=== PATIENT | male | born 1960 | race Caucasian/White ===

== ENCOUNTER 2023-05-28 08:04 | Emergency (ER) | payer MEDICAID ==
[~2023-05-28] VITALS: Ht 177.8 cm; Wt 81.6 kg
[2023-05-28] MEDS ORDERED: normal saline 1000ML IV soln IVB ONE ×2 (09:00)
[2023-05-28] MEDS ORDERED: methylPREDNISolone sod succ 125mg/2ml vial IV ONE (09:00)
[2023-05-28] MEDS ORDERED: furosemide 40mg/4ml inj IV ONE (09:00)
[2023-05-28] MEDS ORDERED: albuterol 2.5 MG/3 ML nebule CONTNEB PRN (09:00)
[2023-05-28] MEDS ORDERED: ipratropium 0.5 MG/2.5ML nebule IH ONE (09:00)
[2023-05-28 09:16] VITALS: PULSE 84; RESP 20; O2SAT 97
[2023-05-28 09:49] VITALS: BP 123/84; O2SAT 100
[2023-05-28 10:27] VITALS: PULSE 107; RESP 24
[2023-05-28 10:42] LABS: BASOPHILS % (AUTO) 0.2 % (0-1); EOSINOPHILS % (AUTO) 0.3 % (0-6); HEMATOCRIT 43.5 % (42.0-52.0); HEMOGLOBIN 14.8 g/dl (14.0-17.9); LYMPHOCYTES # (AUTO) 0.6 X10'3 (1.1-4.8); LYMPHOCYTES % (AUTO) 15.2 % (21-51); MEAN CORPUSCULAR HEMOGLOBIN 33.4 PG (27.0-31.0); MEAN CORPUSCULAR HGB CONC 34.1 g/dL (33.0-36.5); MEAN PLATELET VOLUME 6.7 FL (7.4-10.4); MONOCYTES # (AUTO) 0.5 X10'3 (0-0.9); MONOCYTES % (AUTO) 13.3 % (2-12); NEUTROPHILS # (AUTO) 2.6 X10'3 (1.8-7.7); PLATELET COUNT 122 X10'3 (140-440); RED BLOOD COUNT 4.44 X10'6 (4.70-6.10); WHITE BLOOD COUNT 3.7 X10'3 (4.5-11.0)
[2023-05-28 10:55] LABS: APTT 26 SECONDS (22-32); PROTHROMBIN TIME 10.7 SECONDS (9.0-12.0)
[2023-05-28 11:00] VITALS: TEMP 100.1
[2023-05-28 11:00] LABS: ALANINE AMINOTRANSFERASE 36 U/L (12-78); ALBUMIN 4.3 G/DL (3.4-5.0); ALBUMIN/GLOBULIN RATIO 1.3 (1.1-1.5); ALKALINE PHOSPHATASE 101 IU/L (46-116); ANION GAP 19 (8-16); ASPARTATE AMINO TRANSFERASE 51 U/L (10-37); BILIRUBIN,TOTAL 1.4 MG/DL (0.1-1.0); BLOOD UREA NITROGEN 14 MG/DL (7-18); BUN/CREATININE RATIO 14.7 (10.0-20.0); CALCIUM 8.3 MG/DL (8.5-10.1); CHLORIDE 100 MMOL/L (99-107); CREATININE 0.95 MG/DL (0.60-1.10); GLUCOSE 85 MG/DL (70-104); POTASSIUM 3.1 MMOL/L (3.5-5.1); SODIUM 138 MMOL/L (135-145); TOTAL CARBON DIOXIDE 19.3 MMOL/L (24-32); TOTAL PROTEIN 7.6 G/DL (6.4-8.2); eCRCL 83 ML/MIN; eGFR 80 ML/MIN
[2023-05-28 11:04] LABS: PRO BRAIN NATRIURETIC PEPTIDE 118 PG/ML (0-125)
[2023-05-28] MEDS ORDERED: ibuprofen tablet 400 MG TABLET PO ONE (11:30)
[2023-05-28] MEDS ORDERED: normal saline 1000ml 1,000 ML IV ONE (12:05)
[2023-05-28] MEDS ORDERED: POTASSIUM BICARB 20meq eff tab 20 MEQ TABLET.EFF PO ONE (12:05)
[2023-05-28] MEDS ORDERED: PRED20TA PO (12:17)
[2023-05-28] MEDS ORDERED: ALBU8HFA INH (12:18)
[2023-05-28] MEDS ORDERED: AZI25OT PO (12:18)
== END 2023-05-28 13:43 | disposition home or self-care (01) ==
LOC: ER 08:07
DX: J44.1 Chronic obstructive pulmonary disease with (acute) exacerbation (principal); Z20.822 Contact with and (suspected) exposure to COVID-19; E87.6 Hypokalemia; J10.1 Influenza due to other identified influenza virus with other respiratory manifestations
CPT/HCPCS: 36415; 71045; 80053; 83605; 83880; 84484; 85025; 85610; 85730; 87040; 87502; 87503; 87811; 94644; 96361; 96374; 96375; 99285; J1940; J2930; J7030; J7040; A7015